=== PATIENT | male | born 1955 | race Caucasian/White ===

== ENCOUNTER 2019-07-05 19:40 | Emergency (ER) | payer MEDICARE ==
[~2019-07-05] VITALS: Ht 177.8 cm; Wt 86.0 kg
[~2019-07-05 19:40] MED LIST: ALPR1TAB2 PO; ASPI325T17 PO; ATOR40TA PO; BUPR150T73 PO; CELE100C PO; CO Q10 PO; FISH OIL PO; GABA600T7 PO; GLUC1TAB27 PO; LISI40TA PO; MULT-516 PO; OXYB5TAB10 PO; OXYC-302 PO; OXYC80TA25 PO; RANI-467 PO; TAMS-11 PO; TEST75GE TD
[2019-07-05 20:36] LABS: BASOPHILS # (AUTO) 0.02 x10^3/uL (0-0.1); BASOPHILS % (AUTO) 0 % (0-1); EOSINOPHILS # (AUTO) 0.19 x10^3/uL (0-0.4); EOSINOPHILS % (AUTO) 3 % (1-7); LYMPHOCYTES # (AUTO) 0.93 x10^3/uL (1-3.4); LYMPHOCYTES % (AUTO) 13 % (22-44); MD NO; MEAN CORPUSCULAR HEMOGLOBIN 28.3 pg (27.5-34.5); MEAN CORPUSCULAR HGB CONC 33.2 g/dL (33.2-36.2); MEAN CORPUSCULAR VOLUME 85.3 fL (81-97); MEAN PLATELET VOLUME 7.4 fL (7.4-10.4); MONOCYTES # (AUTO) 0.49 x10^3/uL (0.2-0.8); MONOCYTES % (AUTO) 7 % (2-9); NEUTROPHILS # (AUTO) 5.78 x10^3/uL (1.8-6.8); NEUTROPHILS % (AUTO) 78 % (42-75); PLATELET COUNT 240 x10^3/uL (130-400); RED BLOOD COUNT 4.46 x10^6/uL (4.38-5.82); RED CELL DISTRIBUTION WIDTH 13.9 % (9.4-14.8)
[2019-07-05 20:37] LABS: MICROSCOPIC AUTO
[2019-07-05 20:38] LABS: CULTURE INDICATED? YES
[2019-07-05 20:43] VITALS: BP 138/76
[2019-07-05 20:46] LABS: ALANINE AMINOTRANSFERASE 21 U/L (12-78); ALBUMIN 3.6 g/dL (3.4-5.0); ANION GAP 8 mmol/L (5-15); CALCIUM 8.9 mg/dL (8.5-10.1); CHLORIDE 104 mmol/L (98-107); CREATININE 0.78 mg/dL (0.7-1.3)
[2019-07-05 20:48] LABS: ALKALINE PHOSPHATASE 87 U/L (45-117); BILIRUBIN,TOTAL 0.7 mg/dL (0.2-1.0); TOTAL PROTEIN 7.3 g/dL (6.4-8.2)
[2019-07-05] MEDS ORDERED: SODIUM CHLORIDE FLUSH 10ML SYR IVF ONE (21:00)
[2019-07-05] MEDS ORDERED: OMNIPAQUE 350 MG/ML, 100ML BOTTLE ONE (21:12)
== END 2019-07-05 21:53 | disposition home or self-care (01) ==
LOC: ED 21:35
DX: N30.91 Cystitis, unspecified with hematuria (principal); N41.1 Chronic prostatitis; F19.90 Other psychoactive substance use, unspecified, uncomplicated; Z90.89 Acquired absence of other organs; Z88.6 Allergy status to analgesic agent
CPT/HCPCS: 36415; 74177; 80053; 81001; 85025; 87086; 99284; Q9967